=== PATIENT | male | born 1990 | race Two or more races ===

== ENCOUNTER 2024-01-13 12:46 | Emergency (ER) | payer BC, SELFPAY ==
[2024-01-13 12:50] VITALS: BP 122/79; PULSE 99; RESP 16; TEMP 36.8; O2SAT 97; BMI 27.6
--- NOTE | 2024-01-13 12:57 | ED_ITS ---
HPI - General Adult General Chief complaint: General Medical Stated complaint: Insomnia d/t detox Time Seen by Provider: 01/13/24 13:47 Source: patient Mode of arrival: ambulatory Limitations: no limitations History of Present Illness ED Provider: OWEN WINKLER PA-C HPI narrative: 33-year-old male with past medical history significant for opioid abuse presents to the ED today for evaluation of insomnia. Reports abusing opioids for 3 years, quit cold turkey 5 days ago.Admits he has been taking small amounts of his mother's methadone at home to hold him over . He states that he is no longer having symptoms of withdrawal and physically feels fine however has been unable to sleep. Trialing melatonin and nyquil at home without improvement. Requesting something to help him sleep. Also open to speaking with our addiction medicine team however he is not interested in detox or start methadone at this time. No other concerns. Denies SI/HI. Denies etoh consumption. Denies ilicit substance use. Denies AH/VH/TH. Related Data Previous Rx's ?Medication ?Instructions ?Recorded trazodone 50 mg tablet 50 mg PO BEDTIME PRN insomnia #5 01/13/24 tabs Allergies Allergy/AdvReac Type Severity Reaction Status Date / Time No Known Allergies Allergy Verified 01/13/24 12:52 Review of Systems Review of Systems: Yes all other systems are reviewed and are negative PMFSH Past Medical History Attestation statement: The following information was validated with the patient. Source: old records reviewed and nursing notes reviewed Social History Social History Advance Directives: No Do you have a plan to hurt others: No Plan Physical Exam ED Vital Signs: Vital Signs - 24 hr 01/13/24 12:50 Temperature 98.3 F Pulse Rate 99 Respiratory Rate 16 Blood Pressure 122/79 Pulse Oximetry 97 Oxygen Delivery Method Room Air BMI result Body Mass Index 27.6 Vital signs stable General: Well appearing, in no acute distress. Skin: Warm, dry, intact. No rashes or lesions. Head: Normocephalic, atraumatic. EENT: Hearing is intact b/l. Conjunctiva clear. PERRLA. Moist mucous membranes.? Cardiac: Chest wall symmetric. RRR. Lungs: Normal respiratory effort without accessory muscle use. CTA bilaterally. Back: No midline spinous or paraspinal tenderness. No step off deformity. Ext: Upper and lower extremities atraumatic, without tenderness, deformity, swelling or erythema. Full ROM throughout. Neuro: AOx3. Normal speech. Ambulating with steady gait. Psych: Appropriate mood and affect. Responds appropriately to questions. Course Course Course Narrative: This is a Rapid Medical Examination (RME) performed by Carmine Butts PA-C in triage. Full HPI, ROS, assessment and treatment plan per primary provider in the Main ED. 33 yo male presents to the ER for evaluation of insomnia in the setting of self detoxing from opiates at home. Plan: addiction medicine consult? Reevaluation(s) Reevaluation #1: 3175 -- Isaura Pool from addiction medicine at bedside to evaluate patient. recommending trazodone for sleep along with take-home narcan. Patient educated on use. He was also provided with outpatient resources and I have personally given him contact information for the [facility]. Patient agreeable with this plan. Patient has remained stable throughout ED visit today. Discussed worrisome signs and symptoms and when to return to the ED. All questions answered at this time. Patient is agreeable with disposition and stable for discharge. Medical Decision Making Medical Decision Making MDM Narrative: 33-year-old male with past medical history significant for opioid abuse presents to the ED today for evaluation of insomnia. Vital signs stable. Patient is nontoxic appearing in no acute distress. No asterixis, tongue fasciculations, tremors. Plan for addiction medicine consult and disposition. Differential Diagnosis Differential Diagnoses: The differential diagnosis associated with the presentation includes as above Admission/Observation not indicated. Consult Healthcare Provider Management of the patient was discussed with: Special Loan Officer (Isaura Pool Addiction Medicine) Prescription Management I considered prescription management with: Other (trazodone) Chronic Conditions Patient?s care impacted by: Other (opioid abuse) Social Determinants Patient?s care significantly limited by Social Determinants of Health including: Alcoholism and drug addiction in family and Other Social Determinant of Health Critical Care Time Critical Care Time Critical Care Time: No Discharge Plan Discharge Clinical Impression: Insomnia, Opioid abuse Patient Disposition: Home, Self-Care Instructions: Opioid Withdrawal (ED), Insomnia (ED), Opioid Use Disorder (ED) Additional Instructions: You were seen in the ED today for insomnia. You spoke with Isaura from our addiction medicine team and were provided with outpatient resources. I will also provide to with contact information for the [facility] below. You have been provided with take-home Narcan and educated on use. Trazodone is sleeping medication that has been sent to your pharmacy for you to take nightly as needed for sleep. As discussed, they are 50 mg pills however you may cut them in half and trial 25 mg first. Follow up with PCP as needed. Return with new or worsening symptoms. In the case of an emergency call 911. [facility] (addiction recovery): [phone] [id number] Prescriptions: New trazodone 50 mg tablet 50 mg PO BEDTIME PRN (Reason: insomnia) Qty: 5 0RF Print Language: Pashto
[2024-01-13 14:57] VITALS: BP 122/79; PULSE 99; RESP 16; TEMP 36.8; O2SAT 97
[2024-01-13 14:58] VITALS: BP 140/61; PULSE 84; RESP 16; TEMP 36.9; O2SAT 98
[2024-01-13] MEDS: Naloxone HCl Nasal TAKE HOME 4 MG SPRAY 8 MG NOSTRILALT (15:02)
--- NOTE | 2024-01-13 15:04 | MHC.RECOVRN ---
Met with pt in [facility] after consult placed for opioid use. Pt had presented to the ED reporting detoxing from opioids by taking small doses of a friend's methadone, states he has been unable to sleep and is looking for help to sleep. Pt informed triage he was not interested in ATS or MOUD initation, reported he wanted to be off everything. Pt laying in bed, awake, alert, easily engages in conversation, appears comfortable. Pt reports he had been taking Percocet x over 3 years, approx 60 mg daily (some days would be over 100 mg), PO, last use 8 months ago. Pt reports he had been prescribed the medication and when it was no longer prescribed he would buy it on the street. Pt reports he had a friend pass away from an overdose and decided he wanted to stop. At that point pt reports he began taking very small sips of mother's methadone to address withdrawal symptoms. Pt reports he had been doing that for 8 months and last took methadone 5 days ago. Pt states I don't have any withdrawal symptoms anymore except insomnia. Educated pt on risk of overdose after a period of time in recovery. Educated pt on presence of fentanyl in pressed pills. Educated pt regarding Narcan and responding to an overdose. Educated pt on MOUD and the [facility]. Pt is not interested in MOUD at this time. Educated pt on other outpatient recovery resources. Provided written resources to pt. Pt denies questions or concerns for t/w. Discussed with ED provider.
== END 2024-01-13 15:03 | disposition home or self-care (01) ==
PROVIDERS: Emergency Provider Student in an Organized Health Care Education/Training Program
DX: G47.00 Insomnia, unspecified (principal); F11.10 Opioid abuse, uncomplicated; Z71.51 Drug abuse counseling and surveillance of drug abuser
CPT/HCPCS: 99283